=== PATIENT | male | born 1960 | race Caucasian/White ===

== ENCOUNTER 2022-03-04 20:38 | Emergency (ER) | payer OTHER, SELFPAY ==
[2022-03-04] MEDS ORDERED: Lidocaine 1% (PF) 30 ML VIAL ONE (21:04)
== END 2022-03-04 22:38 | disposition home or self-care (01) ==
LOC: NAV ERS 20:38
DX: S61.216A Laceration without foreign body of right little finger without damage to nail, initial encounter (principal); E11.9 Type 2 diabetes mellitus without complications; E78.00 Pure hypercholesterolemia, unspecified; Z86.73 Personal history of transient ischemic attack (TIA), and cerebral infarction without residual deficits; Z79.82 Long term (current) use of aspirin; Z79.84 Long term (current) use of oral hypoglycemic drugs; W19.XXXA Unspecified fall, initial encounter
CPT/HCPCS: 12002; J2001